=== PATIENT | female | born 1940 | race Caucasian/White ===

== ENCOUNTER 2018-07-25 07:18 | Inpatient (IN) | payer OTHER ==
[~2018-07-25] VITALS: Ht 167.6 cm; Wt 54.0 kg
[~2018-07-25 07:18] MED LIST: ALPR.25 PO; AMIO200 PO; ANACIN PO; Advil Pm Liqui1 EACH PO; Aspir-Trin325 MG PO; CALTRATE 600 +1 EACH PO; Coq-10100 MG PO; DIGO.125 PO; FISH1000 PO; Flecainide Acet50 MG PO; LISI5 PO; Lisinopril2.5 MG PO; METF500 PO; METF500C PO; METO25ER PO; MULVITMIND PO; NIAC500 PO; Ocuvite Softge1 EAC1 PO; PRADAXA PO; PREG25 PO; ROSU5 PO; Slo-Niacin250 MG PO; VALA500 PO; XARELTO15 MG PO; ZOLP5 PO
[2018-07-25] MEDS ORDERED: METHI10 PO (07:47)
[2018-07-27] MEDS ORDERED: SOTO80 PO (09:19)
== END 2018-07-27 11:35 | disposition home or self-care (01) | DRG 310 ==
LOC: MHTC 07:18 → PCU 10:30 → MHTC 10:37 → PCU 07-26 16:28
DX: I48.1 Persistent atrial fibrillation (principal); I25.10 Atherosclerotic heart disease of native coronary artery without angina pectoris; E11.9 Type 2 diabetes mellitus without complications; Z79.84 Long term (current) use of oral hypoglycemic drugs; E78.00 Pure hypercholesterolemia, unspecified; I34.0 Nonrheumatic mitral (valve) insufficiency; Z87.891 Personal history of nicotine dependence
CPT/HCPCS: 82947; 93005; 93010; 93454; 99152; C1769; C1894; G0378; J1644; J2250; J3010; J7030; Q9967

== ENCOUNTER 2018-12-05 08:55 | Day surgery (SDC) | payer OTHER ==
[~2018-12-05] VITALS: Ht 167.6 cm; Wt 62.7 kg
[~2018-12-05 08:55] MED LIST changes: +ALPR.5 PO; +Co Q-10100 MG PO; +DIGOX125 MCG PO; +ELIQUIS5 MG PO; +METHI10 PO; +Metformin HCl500 MG PO; +SOTALOL PO; +SOTO80 PO; +ZOLP10 PO
--- NOTE | 2018-12-05 12:29 | NUR ---
12/05/18 1229 Brenda An DC'D AMBULATORY IN STABLE CONDITION W/INSTRUCTIONS FOR CARE AND F/U. EYE SHIELD ON AND EYE CARE KIT GIVEN. AMIE PO FOOD AND FLUIDS PRIOR TO DC HOME
== END 2018-12-05 12:20 | disposition home or self-care (01) ==
LOC: ORSCSDS 08:55
PROVIDERS: Ophthalmology
PROC: 08RK3JZ Replacement of Left Lens with Synthetic Substitute, Percutaneous Approach (ICD-10-PCS; principal; 2018-12-05 10:30)
DX: H25.12 Age-related nuclear cataract, left eye (principal); E11.9 Type 2 diabetes mellitus without complications; I48.91 Unspecified atrial fibrillation; Z79.01 Long term (current) use of anticoagulants; I25.10 Atherosclerotic heart disease of native coronary artery without angina pectoris; F17.210 Nicotine dependence, cigarettes, uncomplicated; Z79.899 Other long term (current) drug therapy
CPT/HCPCS: 82947; J2250; J3010; J3301; J7120; V2632

== ENCOUNTER 2018-12-19 06:56 | Day surgery (SDC) | payer OTHER ==
[~2018-12-19] VITALS: Ht 167.6 cm; Wt 61.8 kg
== END 2018-12-19 08:58 | disposition home or self-care (01) ==
LOC: ORSCSDS 06:56
PROVIDERS: Ophthalmology
PROC: 08RJ3JZ Replacement of Right Lens with Synthetic Substitute, Percutaneous Approach (ICD-10-PCS; principal; 2018-12-19 08:30)
DX: H25.11 Age-related nuclear cataract, right eye (principal); E11.36 Type 2 diabetes mellitus with diabetic cataract; F41.9 Anxiety disorder, unspecified; I10 Essential (primary) hypertension; E78.5 Hyperlipidemia, unspecified; E03.9 Hypothyroidism, unspecified; I48.91 Unspecified atrial fibrillation; Z79.01 Long term (current) use of anticoagulants; Z79.84 Long term (current) use of oral hypoglycemic drugs; Z79.899 Other long term (current) drug therapy
CPT/HCPCS: 82947; J2001; J2250; J3010; J3301; J7120; V2632

== ENCOUNTER 2020-07-24 00:36 | Day surgery (SDC) | payer OTHER ==
[~2020-07-24 00:36] MED LIST changes: +GLIP5 PO; +PANT20 PO
== END 2020-07-24 17:48 | disposition home or self-care (01) ==
LOC: ATC 00:36
DX: D64.9 Anemia, unspecified (principal); I10 Essential (primary) hypertension; E11.9 Type 2 diabetes mellitus without complications; C56.9 Malignant neoplasm of unspecified ovary; Z87.891 Personal history of nicotine dependence; Z79.84 Long term (current) use of oral hypoglycemic drugs; Z79.899 Other long term (current) drug therapy
CPT/HCPCS: 36415; 36430; 86850; 86900; 86901; 86923; J7050; P9016

== ENCOUNTER 2020-08-07 12:43 | Day surgery (SDC) | payer OTHER ==
--- NOTE | 2020-08-07 16:36 | NUR ---
IV SITE LAC IV SITE INFILTRATE DURING TRANSFUSION AT 1605, ATTEMPTED NEW SITE X1, NOT SUCCESSFUL. JOSIAH BRANDT RN ATTEMPTED UNSUCCESSFULLY, REAL DHILLON RN STARTED NEW IV TO [facility], BLOOD TRANSFUSSION RESUMED.
--- NOTE | 2020-08-07 17:53 | NUR ---
FIRST UNIT PRBC COMPLETED, PT TOLERATED WELL AFTER ANXIETY REGARDING IV SITE. UP TO BATHROOM AND BACK TO BED, BP SLIGHTLY ELEVATED AFTER WALKING TO BR.
--- NOTE | 2020-08-07 19:47 | NUR ---
PRBS'S INFUSING, 2ND OF 2 UNITS. ALERT AND ORIENTED X 4. CHEERFUL AFFECT. CALL LIGHT IN REACH
--- NOTE | 2020-08-07 21:38 | NUR ---
DISCHARGE NOTE: PT HERE FOR 2 UNITS OF PRBC'S. 2ND UNIT FINISHED. VSS. DENIED FLANK PAIN. DENIED DISTRESS. AFFECT CHEERFUL. STATED THAT SHE WANTS TO GO HOME. PT CALLED FOR PERSONAL RIDE. DISCHARGED PER MD ORDER WITH ALL BELONGINGS
== END 2020-08-07 21:44 | disposition home or self-care (01) ==
LOC: TRN 12:43 → MEDS 12:45 → TRN 21:44
DX: D64.9 Anemia, unspecified (principal); I10 Essential (primary) hypertension; E78.5 Hyperlipidemia, unspecified; E11.9 Type 2 diabetes mellitus without complications; E78.00 Pure hypercholesterolemia, unspecified; Z79.01 Long term (current) use of anticoagulants; Z87.891 Personal history of nicotine dependence; Z88.2 Allergy status to sulfonamides; Z88.8 Allergy status to other drugs, medicaments and biological substances; Z79.84 Long term (current) use of oral hypoglycemic drugs
CPT/HCPCS: 86850; 86900; 86901; 86923; P9016

== ENCOUNTER 2020-08-21 07:12 | Day surgery (SDC) | payer OTHER ==
[~2020-08-21] VITALS: Ht 167.6 cm; Wt 67.4 kg
[~2020-08-21 07:12] MED LIST changes: +GLIP2.5ER PO; +ZOLPIDEM TARTRAT5 MG PO
--- NOTE | 2020-08-21 11:02 | NUR ---
1040- RESUMED CARE OF PATIENT. RECEIVED REPORT FROM PAUL MITTAL. PATIENT DENIES PAIN OR NAUSEA. TOLERATING SIPS OF JUICE. DERMABOND DRSG X2 TO RIGHT CHEST WALL INTACT WITH NO VISIBLE SWELLING OR DRAINAGE NOTED. Discharge instructions reviewed with patient. Patient verbalizes understanding. Copy given to patient to take home. Patient States Post-Procedure ride home has been arranged with her friend, Jaison.
--- NOTE | 2020-08-21 11:10 | NUR ---
VSS. UP TO DRESS WITH STEADY GAIT. NO C/O.
== END 2020-08-21 22:39 | disposition home or self-care (01) ==
LOC: ORSCMMR 07:12 → ORD 08:45 → ORSCMMR 08:45 → ORD 09:30 → ORSCMMR 22:39
DX: D46.21 Refractory anemia with excess of blasts 1 (principal); I10 Essential (primary) hypertension; I48.91 Unspecified atrial fibrillation; Z79.01 Long term (current) use of anticoagulants; E11.9 Type 2 diabetes mellitus without complications; Z79.899 Other long term (current) drug therapy; Z87.891 Personal history of nicotine dependence; Z95.0 Presence of cardiac pacemaker
CPT/HCPCS: 71045; 77001; 82947; C1788; J0690; J1642; J2250; J2704; J3010; J7120

== ENCOUNTER 2020-08-28 01:55 | Day surgery (SDC) | payer OTHER ==
[2020-08-26 11:44] LABS: Hematocrit 18.1 % (33.0-51.0); Mean Corpuscular HGB 32.2 pg (26.0-34.0); Mean Corpuscular Volume 101 fL (80-100); Platelet Count 257 K/mm3 (150-400); RDW Coefficient Variation 18.8 % (11.7-14.2); RDW Standard Deviation 62.7 fL (35.1-46.3); White Blood Cell Count 8.32 K/mm3 (4.00-11.30)
[2020-08-26 11:46] LABS: Hemoglobin 5.8 g/dL (11.5-16.0); Mean Platelet Volume 14.1 fL (9.1-12.4)
[2020-08-26 12:19] LABS: BASOPHILS ABSOLUTE MAN 0.91 K/mm3 (0.00-0.23); BASOPHILS PERCENT MAN 11 % (0-2); EOSINOPHILS ABSOLUTE MAN 2.41 K/mm3 (0.00-0.68); EOSINOPHILS PERCENT MAN 29 % (0-6); LYMPHOCYTES ABSOLUTE MAN 1.58 K/mm3 (0.84-5.20); LYMPHOCYTES PERCENT MAN 19 % (21-46); MONOCYTES ABSOLUTE MAN 0.08 K/mm3 (0.16-1.47); MONOCYTES PERCENT MAN 1 % (4-13); NEUTROPHILS ABSOLUTE MAN 3.32 K/mm3 (1.96-9.15); SEG NEUTROPHILS PERCENT MAN 40 % (41-73); TOTAL CELLS COUNTED 100
== END 2020-08-28 17:52 | disposition home or self-care (01) ==
LOC: ATC 01:55 → LAB SHORT 13:30 → ATC 17:52
PROVIDERS: Registered Nurse Oncology
DX: D46.21 Refractory anemia with excess of blasts 1 (principal); E11.9 Type 2 diabetes mellitus without complications; I10 Essential (primary) hypertension; E78.5 Hyperlipidemia, unspecified; E78.00 Pure hypercholesterolemia, unspecified; F41.9 Anxiety disorder, unspecified; Z88.2 Allergy status to sulfonamides; Z88.1 Allergy status to other antibiotic agents; Z91.018 Allergy to other foods; Z87.891 Personal history of nicotine dependence; Z79.84 Long term (current) use of oral hypoglycemic drugs; Z79.01 Long term (current) use of anticoagulants
CPT/HCPCS: 36430; 85025; 86850; 86900; 86901; 86923; J7050; P9016

== ENCOUNTER 2020-09-02 00:26 | Day surgery (SDC) | payer OTHER ==
[2020-09-01 11:49] LABS: Hematocrit 22.7 % (33.0-51.0); Hemoglobin 7.2 g/dL (11.5-16.0); Mean Corpuscular HGB Conc 31.7 g/dL (31.5-36.5); Mean Corpuscular Volume 98 fL (80-100); Platelet Count 207 K/mm3 (150-400); RDW Coefficient Variation 16.7 % (11.7-14.2); RDW Standard Deviation 54.8 fL (35.1-46.3); Red Blood Cell Count 2.32 M/mm3 (3.80-5.20); White Blood Cell Count 8.26 K/mm3 (4.00-11.30)
[2020-09-01 11:51] LABS: Mean Platelet Volume 14.2 fL (9.1-12.4)
[2020-09-01 11:59] LABS: Albumin, Blood 2.7 g/dL (3.4-5.0); Albumin/Globulin Ratio 0.6 (0.8-1.8); Bilirubin, Total 1.2 mg/dL (0.1-1.0); Bun/Creatinine Ratio 19.7 (12.0-20.0); Calcium, Blood 8.6 mg/dL (8.5-10.1); Creatinine, Blood 1.17 mg/dL (0.40-1.00); Globulin, Blood 4.5 g/dL (2.2-4.0); Potassium, Blood 4.3 mmol/L (3.5-5.5); Total Protein, Blood 7.2 g/dL (6.4-8.2)
[2020-09-01 12:13] LABS: BAND PERCENT MAN 1 % (0-8); BASOPHILS ABSOLUTE MAN 0.33 K/mm3 (0.00-0.23); BASOPHILS PERCENT MAN 4 % (0-2); EOSINOPHILS ABSOLUTE MAN 0.99 K/mm3 (0.00-0.68); EOSINOPHILS PERCENT MAN 12 % (0-6); LYMPHOCYTES ABSOLUTE MAN 2.64 K/mm3 (0.84-5.20); LYMPHOCYTES PERCENT MAN 32 % (21-46); MONOCYTES ABSOLUTE MAN 0.24 K/mm3 (0.16-1.47); MONOCYTES PERCENT MAN 3 % (4-13); NEUTROPHILS ABSOLUTE MAN 4.04 K/mm3 (1.96-9.15); SEG NEUTROPHILS PERCENT MAN 48 % (41-73); TOTAL CELLS COUNTED 100
== END 2020-09-02 11:54 | disposition home or self-care (01) ==
LOC: ATC 00:26 → EDSTATUS 08:00 → ATC 08:00
PROVIDERS: Internal Medicine Hematology & Oncology
PROC: 30233N1 Transfusion of Nonautologous Red Blood Cells into Peripheral Vein, Percutaneous Approach (ICD-10-PCS; principal; 2020-09-02)
DX: D46.22 Refractory anemia with excess of blasts 2 (principal); I10 Essential (primary) hypertension; E11.9 Type 2 diabetes mellitus without complications; E78.5 Hyperlipidemia, unspecified; I48.19 Other persistent atrial fibrillation; I25.10 Atherosclerotic heart disease of native coronary artery without angina pectoris; I34.0 Nonrheumatic mitral (valve) insufficiency; E05.80 Other thyrotoxicosis without thyrotoxic crisis or storm; T50.905A Adverse effect of unspecified drugs, medicaments and biological substances, initial encounter; E55.9 Vitamin D deficiency, unspecified; F41.9 Anxiety disorder, unspecified; Z79.01 Long term (current) use of anticoagulants; Z79.84 Long term (current) use of oral hypoglycemic drugs; Z79.899 Other long term (current) drug therapy; Z88.2 Allergy status to sulfonamides; Z88.1 Allergy status to other antibiotic agents; Z88.8 Allergy status to other drugs, medicaments and biological substances; Z91.018 Allergy to other foods; Z87.891 Personal history of nicotine dependence
CPT/HCPCS: 36430; 80053; 85025; 86850; 86900; 86901; 86923; J7050; P9016

== ENCOUNTER 2020-10-07 13:15 | Day surgery (SDC) | payer OTHER ==
[2020-10-07 10:27] LABS: Hematocrit 19.2 % (33.0-51.0); Mean Corpuscular HGB 30.1 pg (26.0-34.0); Mean Corpuscular HGB Conc 30.2 g/dL (31.5-36.5); Mean Corpuscular Volume 100 fL (80-100); Platelet Count 125 K/mm3 (150-400); RDW Coefficient Variation 15.7 % (11.7-14.2); RDW Standard Deviation 53.4 fL (35.1-46.3); Red Blood Cell Count 1.93 M/mm3 (3.80-5.20); White Blood Cell Count 6.44 K/mm3 (4.00-11.30)
[2020-10-07 10:30] LABS: Hemoglobin 5.8 g/dL (11.5-16.0)
[2020-10-07 10:56] LABS: BASOPHILS ABSOLUTE MAN 0.19 K/mm3 (0.00-0.23); BASOPHILS PERCENT MAN 3 % (0-2); EOSINOPHILS ABSOLUTE MAN 0.45 K/mm3 (0.00-0.68); EOSINOPHILS PERCENT MAN 7 % (0-6); LYMPHOCYTES ABSOLUTE MAN 4.89 K/mm3 (0.84-5.20); LYMPHOCYTES PERCENT MAN 76 % (21-46); MONOCYTES ABSOLUTE MAN 0.19 K/mm3 (0.16-1.47); MONOCYTES PERCENT MAN 3 % (4-13); SEG NEUTROPHILS PERCENT MAN 11 % (41-73); TOTAL CELLS COUNTED 100
--- NOTE | 2020-10-07 15:41 | NUR ---
1541 VITALS: PT RECIEVING BLOOD TRANSFUSION, LAYING/RECLINING BACK IN CHAIR. NO C/O OR S/S OF HYPOTENSION
== END 2020-10-07 17:51 | disposition home or self-care (01) ==
LOC: ATC 13:15 → LAB FUT 10-07 10:00 → EDSTATUS 10-07 10:00
PROVIDERS: Internal Medicine Hematology & Oncology
PROC: 30233N1 Transfusion of Nonautologous Red Blood Cells into Peripheral Vein, Percutaneous Approach (ICD-10-PCS; principal; 2020-10-07)
DX: D46.21 Refractory anemia with excess of blasts 1 (principal); E11.9 Type 2 diabetes mellitus without complications; I10 Essential (primary) hypertension; I48.0 Paroxysmal atrial fibrillation; E05.90 Thyrotoxicosis, unspecified without thyrotoxic crisis or storm; Z95.5 Presence of coronary angioplasty implant and graft; Z87.891 Personal history of nicotine dependence; Z88.1 Allergy status to other antibiotic agents; Z88.2 Allergy status to sulfonamides; Z88.8 Allergy status to other drugs, medicaments and biological substances; Z79.01 Long term (current) use of anticoagulants; Z79.84 Long term (current) use of oral hypoglycemic drugs; Z79.899 Other long term (current) drug therapy; Z91.09 Other allergy status, other than to drugs and biological substances
CPT/HCPCS: 36415; 36430; 85025; 86850; 86900; 86901; 86923; J1642; J7050; P9016

== ENCOUNTER 2020-10-21 00:08 | Day surgery (SDC) | payer OTHER ==
[2020-10-19 12:47] LABS: Hematocrit 22.1 % (33.0-51.0); Hemoglobin 6.9 g/dL (11.5-16.0); Mean Corpuscular HGB 31.2 pg (26.0-34.0); Mean Corpuscular HGB Conc 31.2 g/dL (31.5-36.5); Mean Corpuscular Volume 100 fL (80-100); NRBC ABSOLUTE 0.02 K/mm3 (0.00-0.02); NRBC Auto 0.5 /100 WBC (0.0-0.2); Platelet Count 152 K/mm3 (150-400); RDW Coefficient Variation 16.4 % (11.7-14.2); RDW Standard Deviation 51.8 fL (35.1-46.3); Red Blood Cell Count 2.21 M/mm3 (3.80-5.20); White Blood Cell Count 3.75 K/mm3 (4.00-11.30)
[2020-10-19 13:00] LABS: Albumin, Blood 3.3 g/dL (3.4-5.0); Albumin/Globulin Ratio 0.9 (0.8-1.8); Bilirubin, Total 0.9 mg/dL (0.1-1.0); Creatinine, Blood 0.97 mg/dL (0.40-1.00); Globulin, Blood 3.8 g/dL (2.2-4.0); Potassium, Blood 4.4 mmol/L (3.5-5.5); Total Protein, Blood 7.1 g/dL (6.4-8.2)
[2020-10-19 13:20] LABS: BAND PERCENT MAN 1 % (0-8); BASOPHILS ABSOLUTE MAN 0.18 K/mm3 (0.00-0.23); BASOPHILS PERCENT MAN 5 % (0-2); EOSINOPHILS ABSOLUTE MAN 0.75 K/mm3 (0.00-0.68); EOSINOPHILS PERCENT MAN 20 % (0-6); LYMPHOCYTES PERCENT MAN 40 % (21-46); MONOCYTES ABSOLUTE MAN 0.03 K/mm3 (0.16-1.47); MONOCYTES PERCENT MAN 1 % (4-13); NEUTROPHILS ABSOLUTE MAN 1.27 K/mm3 (1.96-9.15); SEG NEUTROPHILS PERCENT MAN 33 % (41-73); TOTAL CELLS COUNTED 100
== END 2020-10-21 17:15 | disposition home or self-care (01) ==
LOC: ATC 00:08
PROVIDERS: Internal Medicine Hematology & Oncology
PROC: 30233N1 Transfusion of Nonautologous Red Blood Cells into Peripheral Vein, Percutaneous Approach (ICD-10-PCS; principal; 2020-10-21)
DX: D46.21 Refractory anemia with excess of blasts 1 (principal); I10 Essential (primary) hypertension; E11.9 Type 2 diabetes mellitus without complications; E78.5 Hyperlipidemia, unspecified; I48.19 Other persistent atrial fibrillation; I25.10 Atherosclerotic heart disease of native coronary artery without angina pectoris; E03.8 Other specified hypothyroidism; E55.9 Vitamin D deficiency, unspecified; E78.00 Pure hypercholesterolemia, unspecified; Z88.1 Allergy status to other antibiotic agents; Z88.2 Allergy status to sulfonamides; Z88.8 Allergy status to other drugs, medicaments and biological substances; Z91.09 Other allergy status, other than to drugs and biological substances; Z79.01 Long term (current) use of anticoagulants; Z79.84 Long term (current) use of oral hypoglycemic drugs; Z79.899 Other long term (current) drug therapy; Z87.891 Personal history of nicotine dependence
CPT/HCPCS: 36415; 36430; 80053; 85025; 86850; 86900; 86901; 86923; J1642; J7050; P9016

== ENCOUNTER → 2021-02-11 | Outpatient (CLI) | payer OTHER ==
[~2021-02-11] MED LIST changes: +ERYTHROPOIETIN
[2021-02-11 11:17] LABS: Hematocrit 28.1 % (33.0-51.0); Hemoglobin 9.3 g/dL (11.5-16.0); Mean Corpuscular HGB 35.9 pg (26.0-34.0); Mean Corpuscular HGB Conc 33.1 g/dL (31.5-36.5); Mean Corpuscular Volume 109 fL (80-100); Platelet Count 105 K/mm3 (150-400); RDW Standard Deviation 65.7 fL (35.1-46.3); Red Blood Cell Count 2.59 M/mm3 (3.80-5.20); White Blood Cell Count 2.49 K/mm3 (4.00-11.30)
[2021-02-11 11:32] LABS: Mean Platelet Volume 13.2 fL (9.1-12.4)
[2021-02-11 12:04] LABS: BASOPHILS PERCENT MAN 0 % (0-2); EOSINOPHILS ABSOLUTE MAN 0.02 K/mm3 (0.00-0.68); EOSINOPHILS PERCENT MAN 1 % (0-6); LYMPHOCYTES ABSOLUTE MAN 2.09 K/mm3 (0.84-5.20); LYMPHOCYTES PERCENT MAN 84 % (21-46); MONOCYTES ABSOLUTE MAN 0.09 K/mm3 (0.16-1.47); MONOCYTES PERCENT MAN 4 % (4-13); NEUTROPHILS ABSOLUTE MAN 0.27 K/mm3 (1.96-9.15); SEG NEUTROPHILS PERCENT MAN 11 % (41-73); TOTAL CELLS COUNTED 100
== END | disposition home or self-care (01) ==
LOC: LAB 10:50 → LAB SHORT 10:50
PROVIDERS: Internal Medicine Hematology & Oncology
DX: D46.9 Myelodysplastic syndrome, unspecified (principal)
CPT/HCPCS: 85025

== ENCOUNTER 2021-03-10 00:54 | Day surgery (SDC) | payer OTHER ==
[2021-03-08 12:02] LABS: BASOPHILS PERCENT AUTO 0 % (0-2); EOSINOPHILS ABSOLUTE AUTO 0.03 K/mm3 (0.00-0.68); EOSINOPHILS PERCENT AUTO 2 % (0-6); Hemoglobin 6.9 g/dL (11.5-16.0); Mean Corpuscular HGB 36.5 pg (26.0-34.0); Mean Corpuscular HGB Conc 34.5 g/dL (31.5-36.5); Mean Corpuscular Volume 106 fL (80-100); NRBC ABSOLUTE 0.02 K/mm3 (0.00-0.02); Platelet Count 60 K/mm3 (150-400); RDW Coefficient Variation 17.6 % (11.7-14.2); Red Blood Cell Count 1.89 M/mm3 (3.80-5.20); White Blood Cell Count 1.95 K/mm3 (4.00-11.30)
[2021-03-08 12:26] LABS: IMMATURE GRAN PERCENT AUTO 0 % (0-1); LYMPHOCYTES ABSOLUTE AUTO 1.76 K/mm3 (0.84-5.20); LYMPHOCYTES PERCENT AUTO 90 % (21-46); MONOCYTES ABSOLUTE AUTO 0.03 K/mm3 (0.16-1.47); MONOCYTES PERCENT AUTO 2 % (4-13); NEUTROPHILS ABSOLUTE AUTO 0.13 K/mm3 (1.96-9.15); NEUTROPHILS PERCENT AUTO 7 % (41-73)
[2021-03-08 12:35] LABS: Alanine Aminotransfer (ALT/SGP 10 U/L (12-78); Albumin, Blood 3.1 g/dL (3.4-5.0); Albumin/Globulin Ratio 0.8 (0.8-1.8); Alk Phos 57 U/L (50-136); Anion Gap 4 mmol/L (6-16); Aspartate Aminotrans (AST/SGOT <3 U/L (12-37); Bilirubin, Total 0.9 mg/dL (0.1-1.0); Blood Urea Nitrogen 19 mg/dL (8-24); Bun/Creatinine Ratio 18.3 (12.0-20.0); CO2, Blood 25 mmol/L (21-32); Calcium, Blood 8.9 mg/dL (8.5-10.1); Chloride, Blood 107 mmol/L (98-108); Creatinine, Blood 1.04 mg/dL (0.40-1.00); Glomerular Filtration Rate 54 (60-); Glucose, Blood 163 mg/dL (70-99); Potassium, Blood 4.2 mmol/L (3.5-5.5); Sodium, Blood 136 mmol/L (136-145); Total Protein, Blood 7.1 g/dL (6.4-8.2)
[~2021-03-10 00:54] MED LIST changes: -ERYTHROPOIETIN
--- NOTE | 2021-03-10 09:24 | NUR ---
ORDER FOR 2 UNITS OF PRB'S. DUE TO NATIONAL BLOOD SHORTAGE, ONLY ABLE TO TRANSFUSE 1 UNIT PER BLOOD BANK. DON IN BLOOD BANK HAS NOTIFIED DR. MOSS THAT WE ARE ONLY ABLE TO TRANSFUSE 1 UNIT.
== END 2021-03-10 10:20 | disposition home or self-care (01) ==
LOC: ATC 00:54 → EDSTATUS 08:00 → ATC 10:20
PROVIDERS: Internal Medicine Hematology & Oncology
DX: D46.21 Refractory anemia with excess of blasts 1 (principal); E11.9 Type 2 diabetes mellitus without complications; E03.9 Hypothyroidism, unspecified; I10 Essential (primary) hypertension; Z87.891 Personal history of nicotine dependence; Z95.0 Presence of cardiac pacemaker; Z88.8 Allergy status to other drugs, medicaments and biological substances; Z91.018 Allergy to other foods
CPT/HCPCS: 36430; 80053; 85025; 86850; 86900; 86901; 86923; J1642; J7050; P9016

== ENCOUNTER 2021-03-23 07:19 | Day surgery (SDC) | payer OTHER ==
[2021-03-22 11:10] LABS: Hematocrit 19.9 % (33.0-51.0); Hemoglobin 6.7 g/dL (11.5-16.0); Mean Corpuscular HGB 34.9 pg (26.0-34.0); Mean Corpuscular HGB Conc 33.7 g/dL (31.5-36.5); Mean Corpuscular Volume 104 fL (80-100); NRBC ABSOLUTE 0.03 K/mm3 (0.00-0.02); NRBC Auto 1.2 /100 WBC (0.0-0.2); RDW Coefficient Variation 17.4 % (11.7-14.2); RDW Standard Deviation 63.6 fL (35.1-46.3); Red Blood Cell Count 1.92 M/mm3 (3.80-5.20); White Blood Cell Count 2.42 K/mm3 (4.00-11.30)
[2021-03-22 11:18] LABS: Platelet Count 20 K/mm3 (150-400)
[2021-03-22 11:49] LABS: BASOPHILS PERCENT MAN 0 % (0-2); EOSINOPHILS PERCENT MAN 0 % (0-6); LYMPHOCYTES ABSOLUTE MAN 2.25 K/mm3 (0.84-5.20); LYMPHOCYTES PERCENT MAN 93 % (21-46); MONOCYTES ABSOLUTE MAN 0.02 K/mm3 (0.16-1.47); MONOCYTES PERCENT MAN 1 % (4-13); NEUTROPHILS ABSOLUTE MAN 0.14 K/mm3 (1.96-9.15); SEG NEUTROPHILS PERCENT MAN 6 % (41-73); TOTAL CELLS COUNTED 100
== END 2021-03-23 23:45 | disposition home or self-care (01) ==
LOC: ATC 07:19 → EDSTATUS 08:00 → ATC 23:45
PROVIDERS: Internal Medicine Hematology & Oncology
DX: D46.21 Refractory anemia with excess of blasts 1 (principal); I10 Essential (primary) hypertension; E11.9 Type 2 diabetes mellitus without complications; I48.19 Other persistent atrial fibrillation; I25.10 Atherosclerotic heart disease of native coronary artery without angina pectoris; E05.80 Other thyrotoxicosis without thyrotoxic crisis or storm; Z79.899 Other long term (current) drug therapy; Z79.01 Long term (current) use of anticoagulants; Z88.2 Allergy status to sulfonamides; Z88.8 Allergy status to other drugs, medicaments and biological substances; Z87.891 Personal history of nicotine dependence
CPT/HCPCS: 36415; 36430; 85025; 86850; 86900; 86901; 86923; J1642; J7050; P9016

== ENCOUNTER 2021-03-31 03:32 | Day surgery (SDC) | payer OTHER ==
[2021-03-29 12:56] LABS: Hematocrit 20.9 % (33.0-51.0); Hemoglobin 6.9 g/dL (11.5-16.0); Mean Corpuscular HGB 34.2 pg (26.0-34.0); Mean Corpuscular Volume 104 fL (80-100); NRBC ABSOLUTE 0.05 K/mm3 (0.00-0.02); NRBC Auto 2.4 /100 WBC (0.0-0.2); Platelet Count 74 K/mm3 (150-400); RDW Standard Deviation 63.1 fL (35.1-46.3); Red Blood Cell Count 2.02 M/mm3 (3.80-5.20)
[2021-03-29 13:07] LABS: Albumin, Blood 3.3 g/dL (3.4-5.0); Albumin/Globulin Ratio 0.9 (0.8-1.8); Bilirubin, Total 0.8 mg/dL (0.1-1.0); Bun/Creatinine Ratio 23.9 (12.0-20.0); Calcium, Blood 8.9 mg/dL (8.5-10.1); Creatinine, Blood 1.38 mg/dL (0.40-1.00); Globulin, Blood 3.6 g/dL (2.2-4.0); Potassium, Blood 4.6 mmol/L (3.5-5.5); Total Protein, Blood 6.9 g/dL (6.4-8.2)
[2021-03-29 13:27] LABS: BASOPHILS ABSOLUTE MAN 0.04 K/mm3 (0.00-0.23); BASOPHILS PERCENT MAN 2 % (0-2); EOSINOPHILS PERCENT MAN 0 % (0-6); LYMPHOCYTES ABSOLUTE MAN 1.78 K/mm3 (0.84-5.20); LYMPHOCYTES PERCENT MAN 85 % (21-46); MONOCYTES ABSOLUTE MAN 0.08 K/mm3 (0.16-1.47); MONOCYTES PERCENT MAN 4 % (4-13); NEUTROPHILS ABSOLUTE MAN 0.18 K/mm3 (1.96-9.15); SEG NEUTROPHILS PERCENT MAN 9 % (41-73); TOTAL CELLS COUNTED 100
[2021-03-31] MEDS ORDERED: ERYTHROPOIETIN (08:57)
--- NOTE | 2021-03-31 09:05 | NUR ---
BLOOD VITALS: PT HYPOTENSION UPON ARRIVAL, RECLINED BACK, NO SYMPTOMS OF DIZZINESS ETC
== END 2021-03-31 10:21 | disposition home or self-care (01) ==
LOC: ATC 03:32 → LAB FUT 01-04 15:25 → EDSTATUS 01-04 15:25
PROVIDERS: Internal Medicine Hematology & Oncology
DX: D46.21 Refractory anemia with excess of blasts 1 (principal); I48.19 Other persistent atrial fibrillation; E11.9 Type 2 diabetes mellitus without complications; E03.9 Hypothyroidism, unspecified; E78.5 Hyperlipidemia, unspecified; I25.10 Atherosclerotic heart disease of native coronary artery without angina pectoris; Z87.891 Personal history of nicotine dependence; Z95.0 Presence of cardiac pacemaker; Z79.01 Long term (current) use of anticoagulants; Z79.84 Long term (current) use of oral hypoglycemic drugs
CPT/HCPCS: 36415; 36430; 80053; 85025; 86850; 86900; 86901; 86923; J1642; J7050; P9016

== ENCOUNTER 2021-04-28 14:18 | Day surgery (SDC) | payer OTHER ==
[2021-04-26 10:48] LABS: Hematocrit 18.2 % (33.0-51.0); Mean Corpuscular HGB 35.1 pg (26.0-34.0); Mean Corpuscular Volume 106 fL (80-100); RDW Coefficient Variation 21.2 % (11.7-14.2); RDW Standard Deviation 78.5 fL (35.1-46.3); Red Blood Cell Count 1.71 M/mm3 (3.80-5.20)
[2021-04-26 10:54] LABS: Albumin, Blood 3.6 g/dL (3.4-5.0); Albumin/Globulin Ratio 0.9 (0.8-1.8); Bilirubin, Total 1.3 mg/dL (0.1-1.0); Bun/Creatinine Ratio 29.8 (12.0-20.0); Calcium, Blood 9.5 mg/dL (8.5-10.1); Creatinine, Blood 1.21 mg/dL (0.40-1.00); Globulin, Blood 3.9 g/dL (2.2-4.0); Potassium, Blood 4.6 mmol/L (3.5-5.5); Total Protein, Blood 7.5 g/dL (6.4-8.2)
[2021-04-26 11:00] LABS: Platelet Count 35 K/mm3 (150-400)
[2021-04-26 11:35] LABS: BAND PERCENT MAN 2 % (0-8); BASOPHILS PERCENT MAN 0 % (0-2); EOSINOPHILS PERCENT MAN 0 % (0-6); LYMPHOCYTES ABSOLUTE MAN 1.86 K/mm3 (0.84-5.20); LYMPHOCYTES PERCENT MAN 81 % (21-46); MONOCYTES PERCENT MAN 0 % (4-13); NEUTROPHILS ABSOLUTE MAN 0.43 K/mm3 (1.96-9.15); SEG NEUTROPHILS PERCENT MAN 17 % (41-73); TOTAL CELLS COUNTED 100
[~2021-04-28 14:18] MED LIST changes: +ERYTHROPOIETIN
== END 2021-04-28 17:48 ==
LOC: ATC 14:18
PROVIDERS: Internal Medicine Hematology & Oncology
DX: D46.21 Refractory anemia with excess of blasts 1 (principal); I10 Essential (primary) hypertension; E11.9 Type 2 diabetes mellitus without complications; Z88.1 Allergy status to other antibiotic agents; Z88.8 Allergy status to other drugs, medicaments and biological substances; Z87.891 Personal history of nicotine dependence; Z91.018 Allergy to other foods; Z79.84 Long term (current) use of oral hypoglycemic drugs
CPT/HCPCS: 36415; 36430; 80053; 85025; 86850; 86900; 86901; 86923; J1642; J7050; P9016

== ENCOUNTER 2021-05-05 04:57 | Day surgery (SDC) | payer OTHER ==
[2021-05-04 12:32] LABS: BASOPHILS PERCENT AUTO 0 % (0-2); EOSINOPHILS ABSOLUTE AUTO 0.02 K/mm3 (0.00-0.68); EOSINOPHILS PERCENT AUTO 1 % (0-6); Hematocrit 20.3 % (33.0-51.0); Hemoglobin 6.5 g/dL (11.5-16.0); Mean Corpuscular HGB 31.6 pg (26.0-34.0); Mean Corpuscular Volume 99 fL (80-100); RDW Coefficient Variation 19.9 % (11.7-14.2); RDW Standard Deviation 70.1 fL (35.1-46.3); Red Blood Cell Count 2.06 M/mm3 (3.80-5.20); White Blood Cell Count 1.71 K/mm3 (4.00-11.30)
[2021-05-04 12:41] LABS: IMMATURE GRAN PERCENT AUTO 0 % (0-1); LYMPHOCYTES ABSOLUTE AUTO 1.53 K/mm3 (0.84-5.20); LYMPHOCYTES PERCENT AUTO 90 % (21-46); MONOCYTES ABSOLUTE AUTO 0.02 K/mm3 (0.16-1.47); MONOCYTES PERCENT AUTO 1 % (4-13); NEUTROPHILS ABSOLUTE AUTO 0.14 K/mm3 (1.96-9.15); NEUTROPHILS PERCENT AUTO 8 % (41-73)
[2021-05-04 12:42] LABS: Platelet Count 8 K/mm3 (150-400)
[2021-05-04 13:04] LABS: Albumin, Blood 3.3 g/dL (3.4-5.0); Albumin/Globulin Ratio 0.9 (0.8-1.8); Bilirubin, Total 0.9 mg/dL (0.1-1.0); Bun/Creatinine Ratio 24.6 (12.0-20.0); Calcium, Blood 9.2 mg/dL (8.5-10.1); Creatinine, Blood 1.34 mg/dL (0.40-1.00); Globulin, Blood 3.5 g/dL (2.2-4.0); Potassium, Blood 4.5 mmol/L (3.5-5.5); Total Protein, Blood 6.8 g/dL (6.4-8.2)
== END 2021-05-05 18:42 | disposition home or self-care (01) ==
LOC: ATC 04:57 → EDSTATUS 13:30 → ATC 13:30
PROVIDERS: Internal Medicine Hematology & Oncology
DX: D46.21 Refractory anemia with excess of blasts 1 (principal); D69.49 Other primary thrombocytopenia; I48.19 Other persistent atrial fibrillation; Z79.01 Long term (current) use of anticoagulants; E11.9 Type 2 diabetes mellitus without complications; Z79.84 Long term (current) use of oral hypoglycemic drugs; Z95.0 Presence of cardiac pacemaker; Z87.891 Personal history of nicotine dependence; Z88.2 Allergy status to sulfonamides; Z88.8 Allergy status to other drugs, medicaments and biological substances; Z91.048 Other nonmedicinal substance allergy status; E78.5 Hyperlipidemia, unspecified; I25.10 Atherosclerotic heart disease of native coronary artery without angina pectoris; E05.80 Other thyrotoxicosis without thyrotoxic crisis or storm; E55.9 Vitamin D deficiency, unspecified; Z86.010 Personal history of colon polyps
CPT/HCPCS: 36415; 36430; 80053; 85025; 86850; 86900; 86901; 86923; J1642; J7050; P9016; P9035

== ENCOUNTER 2021-05-22 03:40 | Emergency (ER) | payer OTHER ==
[~2021-05-22] VITALS: Ht 167.6 cm; Wt 60.8 kg
[2021-05-22 05:19] LABS: BASOPHILS ABSOLUTE AUTO 0.01 K/mm3 (0.00-0.23); BASOPHILS PERCENT AUTO 1 % (0-2); EOSINOPHILS PERCENT AUTO 0 % (0-6); Hematocrit 20.2 % (33.0-51.0); Hemoglobin 6.5 g/dL (11.5-16.0); Mean Corpuscular HGB Conc 32.2 g/dL (31.5-36.5); Mean Corpuscular Volume 96 fL (80-100); RDW Coefficient Variation 18.1 % (11.7-14.2); RDW Standard Deviation 59.7 fL (35.1-46.3)
[2021-05-22 05:26] LABS: IMMATURE GRAN PERCENT AUTO 0 % (0-1); LYMPHOCYTES ABSOLUTE AUTO 1.17 K/mm3 (0.84-5.20); LYMPHOCYTES PERCENT AUTO 90 % (21-46); MONOCYTES ABSOLUTE AUTO 0.04 K/mm3 (0.16-1.47); MONOCYTES PERCENT AUTO 3 % (4-13); NEUTROPHILS ABSOLUTE AUTO 0.08 K/mm3 (1.96-9.15); NEUTROPHILS PERCENT AUTO 6 % (41-73); Platelet Count 27 K/mm3 (150-400)
[2021-05-22 05:33] LABS: International Normalized Ratio 1.06; Prothrombin Time Results 11.4 Sec (9.7-11.5)
[2021-05-22 05:40] LABS: Albumin, Blood 3.5 g/dL (3.4-5.0); Albumin/Globulin Ratio 0.9 (0.8-1.8); Bilirubin, Total 1.1 mg/dL (0.1-1.0); Bun/Creatinine Ratio 28.4 (12.0-20.0); Calcium, Blood 9.4 mg/dL (8.5-10.1); Creatinine, Blood 1.16 mg/dL (0.40-1.00); Potassium, Blood 4.2 mmol/L (3.5-5.5); Total Protein, Blood 7.5 g/dL (6.4-8.2)
== END 2021-05-22 14:07 | disposition home or self-care (01) ==
LOC: ER 03:40
PROVIDERS: Emergency Medicine
DX: K06.8 Other specified disorders of gingiva and edentulous alveolar ridge (principal); D69.6 Thrombocytopenia, unspecified; Z79.01 Long term (current) use of anticoagulants; Z79.84 Long term (current) use of oral hypoglycemic drugs; Z79.899 Other long term (current) drug therapy
CPT/HCPCS: 36415; 80053; 85025; 85610; 85730; 93005; 93010; A9270; J7030; P9016; P9035; P9053

== ENCOUNTER 2021-05-26 04:06 | Day surgery (SDC) | payer OTHER | END 2021-05-26 11:49 | disposition home or self-care (01) | LOC: ATC 04:06 → LAB 19:22 | DX: D46.21 Refractory anemia with excess of blasts 1 (principal); Z79.01 Long term (current) use of anticoagulants; I48.19 Other persistent atrial fibrillation; I10 Essential (primary) hypertension; E11.9 Type 2 diabetes mellitus without complications; E78.5 Hyperlipidemia, unspecified; Z87.891 Personal history of nicotine dependence; Z95.0 Presence of cardiac pacemaker | CPT/HCPCS: 36430; 86850; 86900; 86901; 86923; J1642; J7050; P9016 ==

== ENCOUNTER 2021-05-31 14:14 | Day surgery (SDC) | payer OTHER ==
[2021-05-31 13:02] LABS: Hematocrit 23.4 % (33.0-51.0); Hemoglobin 7.8 g/dL (11.5-16.0); Mean Corpuscular HGB 31.5 pg (26.0-34.0); Mean Corpuscular HGB Conc 33.3 g/dL (31.5-36.5); Mean Corpuscular Volume 94 fL (80-100); RDW Coefficient Variation 15.2 % (11.7-14.2); RDW Standard Deviation 51.4 fL (35.1-46.3); Red Blood Cell Count 2.48 M/mm3 (3.80-5.20); White Blood Cell Count 1.21 K/mm3 (4.00-11.30)
[2021-05-31 13:09] LABS: Albumin, Blood 2.9 g/dL (3.4-5.0); Albumin/Globulin Ratio 0.7 (0.8-1.8); Bilirubin, Total 0.6 mg/dL (0.1-1.0); Calcium, Blood 9.1 mg/dL (8.5-10.1); Creatinine, Blood 1.23 mg/dL (0.40-1.00); Potassium, Blood 4.1 mmol/L (3.5-5.5); Total Protein, Blood 6.9 g/dL (6.4-8.2)
[2021-05-31 13:20] LABS: Platelet Count 8 K/mm3 (150-400)
[2021-05-31 14:44] LABS: BASOPHILS PERCENT MAN 0 % (0-2); EOSINOPHILS ABSOLUTE MAN 0.01 K/mm3 (0.00-0.68); EOSINOPHILS PERCENT MAN 1 % (0-6); LYMPHOCYTES ABSOLUTE MAN 1.17 K/mm3 (0.84-5.20); LYMPHOCYTES PERCENT MAN 97 % (21-46); MONOCYTES ABSOLUTE MAN 0.01 K/mm3 (0.16-1.47); MONOCYTES PERCENT MAN 1 % (4-13); NEUTROPHILS ABSOLUTE MAN 0.01 K/mm3 (1.96-9.15); SEG NEUTROPHILS PERCENT MAN 1 % (41-73); TOTAL CELLS COUNTED 100
== END 2021-05-31 16:32 | disposition home or self-care (01) ==
LOC: ATC 14:14 → EDSTATUS 14:15 → ATC 16:32
PROVIDERS: Internal Medicine Hematology & Oncology
DX: D69.49 Other primary thrombocytopenia (principal); D46.21 Refractory anemia with excess of blasts 1
CPT/HCPCS: 36415; 80053; 85025; 86900; 86901; J1642; J7050; P9035

== ENCOUNTER 2021-06-24 07:22 | Day surgery (SDC) | payer OTHER ==
[2021-06-21 13:13] LABS: Hematocrit 23.8 % (33.0-51.0); Hemoglobin 7.6 g/dL (11.5-16.0); Mean Corpuscular HGB 30.4 pg (26.0-34.0); Mean Corpuscular HGB Conc 31.9 g/dL (31.5-36.5); Mean Corpuscular Volume 95 fL (80-100); Mean Platelet Volume 12.8 fL (9.1-12.4); RDW Coefficient Variation 14.1 % (11.7-14.2); RDW Standard Deviation 48.2 fL (35.1-46.3); White Blood Cell Count 2.29 K/mm3 (4.00-11.30)
[2021-06-21 13:19] LABS: Platelet Count 12 K/mm3 (150-400)
[2021-06-21 13:42] LABS: BASOPHILS ABSOLUTE MAN 0.09 K/mm3 (0.00-0.23); BASOPHILS PERCENT MAN 4 % (0-2); EOSINOPHILS PERCENT MAN 0 % (0-6); LYMPHOCYTES % ATYPICAL MANUAL 4 % (0-0); LYMPHOCYTES ABSOLUTE MAN 2.19 K/mm3 (0.84-5.20); LYMPHOCYTES PERCENT MAN 92 % (21-46); MONOCYTES PERCENT MAN 0 % (4-13); TOTAL CELLS COUNTED 50
--- NOTE | 2021-06-24 09:20 | NUR ---
PT STATES SHE IS FEELING FINE
== END 2021-06-24 11:38 | disposition home or self-care (01) ==
LOC: ATC 07:22 → EDSTATUS 08:30 → ATC 11:38
PROVIDERS: Internal Medicine Hematology & Oncology
DX: D46.21 Refractory anemia with excess of blasts 1 (principal); D69.49 Other primary thrombocytopenia; E11.9 Type 2 diabetes mellitus without complications; I10 Essential (primary) hypertension; I48.19 Other persistent atrial fibrillation; I25.10 Atherosclerotic heart disease of native coronary artery without angina pectoris; Z88.2 Allergy status to sulfonamides; Z88.8 Allergy status to other drugs, medicaments and biological substances; Z91.018 Allergy to other foods; Z79.01 Long term (current) use of anticoagulants; Z79.84 Long term (current) use of oral hypoglycemic drugs; Z95.0 Presence of cardiac pacemaker; Z87.891 Personal history of nicotine dependence
CPT/HCPCS: 36415; 36430; 85025; 86850; 86900; 86901; 86923; J1642; J7050; P9016; P9053

== ENCOUNTER 2021-07-01 04:03 | Day surgery (SDC) | payer OTHER ==
[2021-06-28 13:46] LABS: Hematocrit 21.3 % (33.0-51.0); Hemoglobin 6.9 g/dL (11.5-16.0); Mean Corpuscular HGB 29.5 pg (26.0-34.0); Mean Corpuscular HGB Conc 32.4 g/dL (31.5-36.5); Mean Corpuscular Volume 91 fL (80-100); Mean Platelet Volume 12.7 fL (9.1-12.4); RDW Coefficient Variation 14.9 % (11.7-14.2); RDW Standard Deviation 49.1 fL (35.1-46.3); Red Blood Cell Count 2.34 M/mm3 (3.80-5.20); White Blood Cell Count 1.76 K/mm3 (4.00-11.30)
[2021-06-28 14:35] LABS: Platelet Count 20 K/mm3 (150-400)
[2021-06-28 16:02] LABS: BASOPHILS ABSOLUTE MAN 0.01 K/mm3 (0.00-0.23); BASOPHILS PERCENT MAN 1 % (0-2); EOSINOPHILS ABSOLUTE MAN 0.03 K/mm3 (0.00-0.68); EOSINOPHILS PERCENT MAN 2 % (0-6); LYMPHOCYTES ABSOLUTE MAN 1.63 K/mm3 (0.84-5.20); LYMPHOCYTES PERCENT MAN 93 % (21-46); MONOCYTES PERCENT MAN 0 % (4-13); NEUTROPHILS ABSOLUTE MAN 0.07 K/mm3 (1.96-9.15); SEG NEUTROPHILS PERCENT MAN 4 % (41-73); TOTAL CELLS COUNTED 100
== END 2021-07-01 23:33 | disposition home or self-care (01) ==
LOC: ATC 04:03 → EDSTATUS 13:30 → ATC 13:30
PROVIDERS: Internal Medicine Hematology & Oncology
DX: D46.21 Refractory anemia with excess of blasts 1 (principal); E05.00 Thyrotoxicosis with diffuse goiter without thyrotoxic crisis or storm; I48.19 Other persistent atrial fibrillation; E11.9 Type 2 diabetes mellitus without complications; I10 Essential (primary) hypertension; E78.5 Hyperlipidemia, unspecified; I25.10 Atherosclerotic heart disease of native coronary artery without angina pectoris; Z79.01 Long term (current) use of anticoagulants; Z95.0 Presence of cardiac pacemaker; Z87.891 Personal history of nicotine dependence; Z79.84 Long term (current) use of oral hypoglycemic drugs
CPT/HCPCS: 36415; 36430; 84443; 85025; 86850; 86900; 86901; 86923; J1642; J7050; P9016

== ENCOUNTER 2021-07-14 00:46 | Day surgery (SDC) | payer OTHER ==
[2021-07-12 13:47] LABS: Hematocrit 21.1 % (33.0-51.0); Hemoglobin 6.7 g/dL (11.5-16.0); Mean Corpuscular HGB 29.1 pg (26.0-34.0); Mean Corpuscular HGB Conc 31.8 g/dL (31.5-36.5); Mean Corpuscular Volume 92 fL (80-100); Platelet Count 96 K/mm3 (150-400); RDW Coefficient Variation 14.6 % (11.7-14.2)
[2021-07-12 13:56] LABS: White Blood Cell Count 1.86 K/mm3 (4.00-11.30)
[2021-07-12 14:21] LABS: BASOPHILS PERCENT MAN 0 % (0-2); EOSINOPHILS PERCENT MAN 0 % (0-6); LYMPHOCYTES % ATYPICAL MANUAL 2 % (0-0); LYMPHOCYTES ABSOLUTE MAN 1.48 K/mm3 (0.84-5.20); LYMPHOCYTES PERCENT MAN 78 % (21-46); MONOCYTES PERCENT MAN 0 % (4-13); NEUTROPHILS ABSOLUTE MAN 0.37 K/mm3 (1.96-9.15); SEG NEUTROPHILS PERCENT MAN 20 % (41-73); TOTAL CELLS COUNTED 50
== END 2021-07-14 10:59 | disposition home or self-care (01) ==
LOC: ATC 00:46
PROVIDERS: Internal Medicine Hematology & Oncology
DX: D46.21 Refractory anemia with excess of blasts 1 (principal); D46.22 Refractory anemia with excess of blasts 2; I48.91 Unspecified atrial fibrillation; E11.9 Type 2 diabetes mellitus without complications; I10 Essential (primary) hypertension; I34.0 Nonrheumatic mitral (valve) insufficiency; E78.00 Pure hypercholesterolemia, unspecified; Z88.2 Allergy status to sulfonamides; Z88.8 Allergy status to other drugs, medicaments and biological substances; Z91.018 Allergy to other foods; Z79.01 Long term (current) use of anticoagulants; Z95.0 Presence of cardiac pacemaker; Z87.891 Personal history of nicotine dependence; Z85.43 Personal history of malignant neoplasm of ovary
CPT/HCPCS: 36415; 36430; 85025; 86850; 86900; 86901; 86923; J1642; J7050; P9016

== ENCOUNTER 2021-07-23 07:35 | Observation (INO) | payer OTHER ==
[~2021-07-23] VITALS: Ht 160 cm; Wt 45.4 kg
[2021-07-23 08:35] LABS: Calcium, Ionized (POC) 1.17 mmol/L (1.10-1.46); Chloride (POC) 101 mmol/L (98-108); Creatinine (POC) 2.7 mg/dL (0.6-1.0); Glucose (ISTAT POC) 70 mg/dL (70-99); Hemoglobin (POC) 5.4 g/dL (12.0-16.0); Potassium (POC) 5.1 mmol/L (3.5-5.5); Sodium (POC) 134 mmol/L (135-148); Total CO2 (POC) 13 mmol/L (21-32)
--- NOTE | 2021-07-23 08:39 | NUR ---
Calrification requested regarding the principals code status. Contact with the registry established and advance care planning instrument collected and reviewed. 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 She has elected to forgo chest compressions, invasive ariway support, and wishes to be comfort measures exclusively. Thank you for this consult. [facility]
[2021-07-23 08:49] LABS: Hematocrit 18.2 % (33.0-51.0); Mean Corpuscular HGB 28.5 pg (26.0-34.0); Mean Corpuscular HGB Conc 31.3 g/dL (31.5-36.5); Mean Corpuscular Volume 91 fL (80-100); RDW Coefficient Variation 14.3 % (11.7-14.2); RDW Standard Deviation 47.6 fL (35.1-46.3)
[2021-07-23 09:08] LABS: BASOPHILS PERCENT AUTO 0 % (0-2); EOSINOPHILS PERCENT AUTO 0 % (0-6); IMMATURE GRAN ABSOLUTE AUTO 0.02 K/mm3 (0.00-0.10); IMMATURE GRAN PERCENT AUTO 3 % (0-1); LYMPHOCYTES ABSOLUTE AUTO 0.59 K/mm3 (0.84-5.20); LYMPHOCYTES PERCENT AUTO 82 % (21-46); MONOCYTES ABSOLUTE AUTO 0.06 K/mm3 (0.16-1.47); MONOCYTES PERCENT AUTO 8 % (4-13); NEUTROPHILS ABSOLUTE AUTO 0.05 K/mm3 (1.96-9.15); NEUTROPHILS PERCENT AUTO 7 % (41-73)
[2021-07-23 09:10] LABS: Albumin, Blood 2.7 g/dL (3.4-5.0); Albumin/Globulin Ratio 0.6 (0.8-1.8); Bilirubin, Total 1.7 mg/dL (0.1-1.0); Bun/Creatinine Ratio 16.1 (12.0-20.0); Calcium, Blood 9.4 mg/dL (8.5-10.1); Creatinine, Blood 2.3 mg/dL (0.40-1.00); Globulin, Blood 4.3 g/dL (2.2-4.0); Platelet Count 17 K/mm3 (150-400); Potassium, Blood 5.1 mmol/L (3.5-5.5)
[2021-07-23 09:11] LABS: White Blood Cell Count 0.72 K/mm3 (4.00-11.30)
[2021-07-23 09:12] LABS: Hemoglobin 5.7 g/dL (11.5-16.0)
[2021-07-23 09:26] LABS: BASOPHILS PERCENT MAN 0 % (0-2); EOSINOPHILS PERCENT MAN 0 % (0-6); LYMPHOCYTES ABSOLUTE MAN 0.69 K/mm3 (0.84-5.20); LYMPHOCYTES PERCENT MAN 96 % (21-46); MONOCYTES PERCENT MAN 0 % (4-13); NEUTROPHILS ABSOLUTE MAN 0.02 K/mm3 (1.96-9.15); SEG NEUTROPHILS PERCENT MAN 4 % (41-73); TOTAL CELLS COUNTED 25
--- NOTE | 2021-07-23 09:38 | NUR ---
ED Palliative Care Consult Spoke with Dr Coreas and discussed case. Pt to the ED after being found down and non responsive. Pt has Myelodysplastic Syndrome and Dr Coreas spoke with her oncologist. Pt is at end stage disease. Dr Coreas reports Pt has POLST with wishes to focus on comfort. Plan if for comfort care. Pt resting on gurny with [facility] [employer] at bedside. Pt is minimally responsive and receiving oxygen via non rebreather. Pt appears moderatley dyspneic. Spoke with ED RN Jermaine and discussed case. Jermaine will request morphine from Dr Coreas for air hunger. Called and spoke with Pt's friend (POA) Jaison. Discussed plan for comfort care with Jaison being in agreement. Spoke with Tomas Gaona and discussed case. Palliative Care will remain available.
[2021-07-23 09:45] LABS: SARS-Cov-2 (COVID-19) PCR, MMC NEGATIVE (NEGATIVE)
--- NOTE | 2021-07-23 10:08 | NUR ---
Spoke with Dr Kenny and discussed case. Placed comfort care order set per V/O from Dr Kenny. Palliative Care will remain available.
[2021-07-23] MEDS ORDERED: METO50ER PO (12:18)
[2021-07-23] MEDS ORDERED: GLIP5 PO (12:19)
[2021-07-23] MEDS ORDERED: INQOVI 35 MG-11 EACH PO (12:19)
--- NOTE | 2021-07-23 13:00 | NUR ---
PT ADMITED ON COMFORT CARE, REPORT RECIEVED FROM PAUL FOWLER. PT ARRIVED VIA GURNEY AND WAS TRANSFERRED TO BED. COMFORT MEASURES PROVIDED AND PT POSITIONED FOR COMFORT. RESPIRATIONS SHALLOW AND COARSE.
--- NOTE | 2021-07-23 13:38 | NUR ---
PT AT 1312, TRAIN RESERVATION CLERK LORRIE IN TO VERIFY. MD AND PALLIATIVE CARE NOTIFIED.
--- NOTE | 2021-07-23 14:34 | NUR ---
Introduction: RN requested [place] Farmer in ED due to pt health in decline. Assessment: 81 y/o female presented laying in the hospital bed unresponsive. Pt eyes moved around but pt did not respond to communication. While in room nurse came in several times and doctor came in with palliative nurse. 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 Son of pt called while the pt's friend while in the room and at that point I stepped out. Intervention: Attempted to cultivate a relationship of care and support. Attempted to explore spiritual, emotional, and relational resources and needs. Listened to friend of pt share about pt's committment to mu-ism and a life of following [employer] and the teachings of the Taoism Bible. Due to pt's strong Taoism background, prayer was provided, hymns were sung, and communication about heaven commenced. Outcome: Pt did not respond during visits. Pt was moved to 3rd floor and 15 minutes after arriving. No follow is needed.
== END 2021-07-23 13:12 ==
LOC: ER 07:35 → MEDS 07:36
PROVIDERS: Emergency Medicine; ADMIT Family Medicine
DX: Z51.5 Encounter for palliative care (principal); D46.Z Other myelodysplastic syndromes; J96.91 Respiratory failure, unspecified with hypoxia; I48.91 Unspecified atrial fibrillation; E11.9 Type 2 diabetes mellitus without complications; D64.9 Anemia, unspecified; Z87.891 Personal history of nicotine dependence; Z66 Do not resuscitate; Z91.81 History of falling; Z20.822 Contact with and (suspected) exposure to COVID-19; E78.5 Hyperlipidemia, unspecified; Z95.0 Presence of cardiac pacemaker
CPT/HCPCS: 71045; 80047; 80053; 85014; 85025; J0282; J2270; U0004